=== PATIENT | female | born 1940 | race Caucasian/White ===

== ENCOUNTER 2023-04-16 11:19 | Inpatient (IN) | payer MEDICARE, BC ==
[2023-04-16] MEDS ORDERED: Diltiazem 25 MG/5 ML SDV IVPUSH ONE (11:44)
[2023-04-16 11:49] LABS: BASOPHILS PERCENT AUTO 0.1 % (0.1-1.3); EOSINOPHILS ABSOLUTE AUTO 0.13 K/uL (0.00-0.40); EOSINOPHILS PERCENT AUTO 1.5 % (0.0-5.4); HEMATOCRIT 39.9 % (34.3-46.0); IMMATURE GRAN PERCENT AUTO 0.2 % (0.0-0.7); LYMPHOCYTES ABSOLUTE AUTO 1.99 K/uL (0.8-3.3); LYMPHOCYTES PERCENT AUTO 23.7 % (11.4-47.7); MEAN CORPUSCULAR HEMOGLOBIN 30.2 pg (31.6-35.5); MEAN CORPUSCULAR HGB CONC 35.1 g/dL (31.6-35.5); MEAN CORPUSCULAR VOLUME 86.2 fL (81.4-99.0); MONOCYTES ABSOLUTE AUTO 0.64 K/uL (0.20-0.90); MONOCYTES PERCENT AUTO 7.6 % (3.3-12.6); NEUTROPHILS ABSOLUTE AUTO 5.61 K/uL (1.0-7.6); NEUTROPHILS PERCENT AUTO 66.9 % (40.0-78.1); PLATELET COUNT,PLT 325 K/uL (130-375); RED BLOOD CELL COUNT 4.63 M/uL (3.77-5.24); WHITE BLOOD CELL COUNT,WBC 8.4 K/uL (3.2-11.0)
[2023-04-16 11:50] LABS: BASOPHILS ABSOLUTE AUTO 0.01 K/uL (0.00-0.10); IMMATURE GRAN ABSOLUTE AUTO 0.02 K/uL (0.00-0.23)
[2023-04-16 12:02] LABS: ALANINE AMINOTRANSFERASE,ALT 11 U/L (12-78); ALBUMIN 3.9 g/dL (3.4-5.0); ALKALINE PHOSPHATASE 106 U/L (46-116); ASPARTATE AMNIOTRANSFERASE,AST 15 U/L (15-37); BILIRUBIN TOTAL 0.6 mg/dL (0.2-1.0); BLOOD UREA NITROGEN,BUN 16 mg/dL (7-18); CALCIUM 8.8 mg/dL (8.5-10.1); CARBON DIOXIDE,CO2 27 mmol/L (21-32); CHLORIDE,CL 91 mmol/L (100-108); CREATININE 0.8 mg/dL (0.6-1.0); ESTIMATED GFR 74 mL/min (>60); GLUCOSE RANDOM 138 mg/dL (74-106); POTASSIUM,K 3.9 mmol/L (3.6-5.2); PROTEIN TOTAL,TP 7.8 g/dL (6.4-8.2); SODIUM,NA 129 mmol/L (140-148); TROPONIN I HIGH SENSITIVITY 4.9 pg/mL (<=60.3)
[2023-04-16 12:03] LABS: ANION GAP 14.9 mmol/L (5.0-14.0)
[2023-04-16] MEDS ORDERED: Propofol 200 MG/20 ML SDV ONE (13:03)
[2023-04-16] MEDS: Diltiazem 100 MG in Sodium Chloride 0.9% 100 ML IV SCH (13:27)
[2023-04-16] MEDS ORDERED: Ondansetron 4 MG/2 ML SDV IV PRN (13:58)
[2023-04-16] MEDS ORDERED: Acetaminophen 325 MG Tab PO PRN (13:58)
[2023-04-16] MEDS ORDERED: Sodium Chloride 0.9% 10 ML Syringe FLUSH PRN (13:58)
[2023-04-16] MEDS ORDERED: Sennosides/Docusate Sodium 50-8.6 MG Tab PO PRN (13:58)
[2023-04-16] MEDS: Metoprolol Tartrate 25 MG Tab PO SCH (20:56)
[2023-04-16] MEDS: Apixaban 5 MG Tab PO SCH (20:56)
[2023-04-16] MEDS: atorvaSTATin 10 MG Tab PO SCH (20:56)
[2023-04-17 05:07] LABS: CALCIUM 8.3 mg/dL (8.5-10.1); CREATININE 0.8 mg/dL (0.6-1.0); EST CRCL DRUG DOSING (CG) 52.5 mL/min
[2023-04-17] MEDS: Diltiazem 100 MG in Sodium Chloride 0.9% 100 ML IV SCH (07:59)
[2023-04-17] MEDS: Apixaban 5 MG Tab PO SCH ×2 (08:06→20:31)
[2023-04-17] MEDS ORDERED: Hydrochlorothiazide 25 MG Tab PO SCH (09:00)
[2023-04-17] MEDS: Metoprolol Tartrate 25 MG Tab PO SCH ×2 (09:39→20:31)
[2023-04-17] MEDS: Diltiazem IR 30 MG Tab PO SCH ×2 (16:49→22:26)
[2023-04-17 16:58] LABS: APPEARANCE,URINE CLEAR (CLEAR); BILIRUBIN,URINE NEGATIVE (NEGATIVE); COLOR,URINE YELLOW (YELLOW); GLUCOSE,URINE NEGATIVE (NEGATIVE); KETONES,URINE NEGATIVE (NEGATIVE); LEUKOCYTE ESTERASE,URINE NEGATIVE (NEGATIVE); NITRITE,URINE NEGATIVE (NEGATIVE); OCCULT BLOOD,URINE TRACE-LYSED (NEGATIVE); PROTEIN,URINE NEGATIVE (NEGATIVE); UROBILINOGEN,URINE 0.2 EU/dL (0.2-1.0)
[2023-04-17 17:04] LABS: RBC,URINE 0-5 (0-5); WBC,URINE 0-5 (0-5)
[2023-04-17 17:05] LABS: AMORPHOUS SEDIMENT,URINE NOT SEEN; BACTERIA,URINE RARE; EPITHELIAL CELLS,URINE NOT SEEN; MUCUS,URINE NOT SEEN
[2023-04-17] MEDS: atorvaSTATin 10 MG Tab PO SCH (20:31)
[2023-04-18] MEDS: Diltiazem IR 30 MG Tab PO SCH (04:39)
[2023-04-18] MEDS: Metoprolol Tartrate 25 MG Tab PO SCH (08:05)
[2023-04-18] MEDS: Apixaban 5 MG Tab PO SCH (08:05)
[2023-04-18] MEDS ORDERED: Diltiazem 120 MG Cap.CD PO ONE (11:00)
== END 2023-04-18 12:05 | disposition home or self-care (01) | DRG 310 ==
LOC: JP.ED 11:19 → JP.ICU 13:02
PROVIDERS: ADMIT Hospitalist; ATTEND Internal Medicine
PROC: 5A2204Z Restoration of Cardiac Rhythm, Single (ICD-10-PCS; principal; 2023-04-16)
DX: I48.0 Paroxysmal atrial fibrillation (principal); I48.91 Unspecified atrial fibrillation; I10 Essential (primary) hypertension; I95.9 Hypotension, unspecified; Z11.52 Encounter for screening for COVID-19; E78.00 Pure hypercholesterolemia, unspecified; Z88.2 Allergy status to sulfonamides; Z79.899 Other long term (current) drug therapy; Z90.49 Acquired absence of other specified parts of digestive tract; Z79.01 Long term (current) use of anticoagulants; Z87.891 Personal history of nicotine dependence
CPT/HCPCS: 36415; 80053; 84484; 85025; 92960; 96374; 99285; J3490; 80048; 81001; 83735; 93010; 99222; 99232; 99238; A9270-GY; J2704; U0002

== ENCOUNTER 2023-06-15 09:18 | Emergency (ER) | payer MEDICARE, BC ==
[2023-06-15 09:45] LABS: BASOPHILS PERCENT AUTO 0.2 % (0.1-1.3); EOSINOPHILS ABSOLUTE AUTO 0.19 K/uL (0.00-0.40); EOSINOPHILS PERCENT AUTO 1.9 % (0.0-5.4); HEMATOCRIT 38.8 % (34.3-46.0); HEMOGLOBIN 13.3 g/dL (11.2-15.5); IMMATURE GRAN ABSOLUTE AUTO 0.04 K/uL (0.00-0.23); IMMATURE GRAN PERCENT AUTO 0.4 % (0.0-0.7); LYMPHOCYTES PERCENT AUTO 15.9 % (11.4-47.7); MEAN CORPUSCULAR HGB CONC 34.3 g/dL (31.6-35.5); MEAN CORPUSCULAR VOLUME 87.4 fL (81.4-99.0); MONOCYTES ABSOLUTE AUTO 0.76 K/uL (0.20-0.90); MONOCYTES PERCENT AUTO 7.6 % (3.3-12.6); NEUTROPHILS ABSOLUTE AUTO 7.43 K/uL (1.0-7.6); PLATELET COUNT,PLT 271 K/uL (130-375); RED BLOOD CELL COUNT 4.44 M/uL (3.77-5.24)
[2023-06-15 09:56] LABS: BASOPHILS ABSOLUTE AUTO 0.02 K/uL (0.00-0.10)
[2023-06-15] MEDS: Metoprolol Tartrate 5 MG/5 ML SDV IVPUSH ONE (10:00)
[2023-06-15 10:03] LABS: PROTHROMBIN TIME 10.1 sec (9.2-10.6)
[2023-06-15] MEDS: Acetaminophen 500 MG Tab PO ONE (10:05)
[2023-06-15 10:06] LABS: ALANINE AMINOTRANSFERASE,ALT 20 U/L (12-78); ALBUMIN 3.6 g/dL (3.4-5.0); ALKALINE PHOSPHATASE 101 U/L (46-116); ASPARTATE AMNIOTRANSFERASE,AST 13 U/L (15-37); BILIRUBIN TOTAL 0.5 mg/dL (0.2-1.0); BLOOD UREA NITROGEN,BUN 25 mg/dL (7-18); CALCIUM 8.6 mg/dL (8.5-10.1); CARBON DIOXIDE,CO2 25 mmol/L (21-32); CHLORIDE,CL 98 mmol/L (100-108); ESTIMATED GFR 57 mL/min (>60); GLUCOSE RANDOM 184 mg/dL (74-106); POTASSIUM,K 3.8 mmol/L (3.6-5.2); PROTEIN TOTAL,TP 7.3 g/dL (6.4-8.2); SODIUM,NA 131 mmol/L (140-148)
[2023-06-15 10:12] LABS: ANION GAP 11.8 mmol/L (5.0-14.0)
== END 2023-06-15 11:04 | disposition home or self-care (01) ==
LOC: JP.ED 09:18
DX: H61.21 Impacted cerumen, right ear (principal); R42 Dizziness and giddiness; E78.00 Pure hypercholesterolemia, unspecified; I10 Essential (primary) hypertension; Z88.2 Allergy status to sulfonamides
CPT/HCPCS: 36415; 70450; 80053; 82947; 85025; 85610; 93005; 96374; 99284; A9270; J3490